=== PATIENT | female | born 1960 | race Caucasian/White ===

== ENCOUNTER → 2018-08-01 09:57 | Outpatient (CLI) | payer OTHER, MEDICAID, SELFPAY ==
--- NOTE | 2018-08-01 | DI.MG.S_ITS ---
BILATERAL DIGITAL SCREENING MAMMOGRAM 3D/2D WITH CAD: 08/01/2018 CLINICAL: Routine screening. Family history of breast cancer. Comparison is made to exams dated: 04/04/2017 mammogram, 12/30/2015 mammogram, and 10/31/2014 mammogram - [facility]. The tissue of both breasts is extremely dense, which lowers the sensitivity of mammography. Current study was also evaluated with a Computer Aided Detection (CAD) system. There are benign calcifications in both breasts. There also is a benign biopsy clip in the right breast. No significant masses, calcifications, or other findings are seen in either breast. There has been no significant interval change. IMPRESSION: There is no mammographic evidence of malignancy. A 1 year screening mammogram is recommended. This exam was interpreted at Station ID: [id number]. NOTE: For mammograms, a report in lay terms will be sent to the patient. Approximately 15% of breast malignancies will not be visualized mammographically. In the management of a palpable breast mass, a negative mammogram must not discourage biopsy of a clinically suspicious lesion. Electronically Signed By: Ortega stanford/kenia:08/01/2018 11:31:01 letter sent: Normal Exam ACR BI-RADS Category 2: Benign Finding(s) 3342F
== END ==
PROVIDERS: Visit Provider Nurse Practitioner
DX: Z12.31 Encounter for screening mammogram for malignant neoplasm of breast (principal); Z80.3 Family history of malignant neoplasm of breast
CPT/HCPCS: 77063; 77067

== ENCOUNTER → 2018-09-28 15:06 | Outpatient (CLI) | payer OTHER, MEDICAID, SELFPAY | PROVIDERS: Visit Provider Physician Assistant | DX: L02.91 Cutaneous abscess, unspecified (principal) | CPT/HCPCS: 87070; 87075; 87077; 87147; 87186; 87205 ==

== ENCOUNTER → 2019-02-21 07:06 | Outpatient (CLI) | payer OTHER, MEDICAID, SELFPAY ==
[2019-02-21 08:06] LABS: Add Manual Diff / Slide Review NO; Basophils Absolute Auto 100 /uL (0-100); Basophils Percent Auto 1.1 % (0-2); Eosinophils Absolute Auto 200 /uL (0-450); Eosinophils Percent Auto 2.9 % (2-4); Hematocrit 44.6 % (36-46); Hemoglobin 15.2 g/dL (12.0-16.0); Lymphocytes Absolute Auto 2000 /uL (1100-4500); Lymphocytes Percent Auto 33.6 % (25-40); Mean Corpuscular HGB Conc 34.1 % (30-36); Mean Corpuscular Hemoglobin 30.7 PG (26-34); Mean Corpuscular Volume 89.8 fL (80-100); Monocytes Absolute Auto 500 /uL (0-900); Monocytes Percent Auto 9.2 % (3-14); Neutrophils Absolute Auto 3200 /uL (1500-7000); Neutrophils Percent Auto 53.2 % (50-75); Platelet Count 299 X10^3/uL (150-400); Red Blood Cell Count 4.97 X10^6/uL (4.0-5.2); Red Cell Distribution Width 12.8 % (11.6-14.8)
[2019-02-21 08:15] LABS: Alanine Aminotransferase 26 IU/L (9-52); Albumin 4.4 g/dL (3.5-5.0); Albumin Globulin Ratio 1.4 (1.0-2.8); Alkaline Phosphatase 72 U/L (38-126); Aspartate Aminotransferase 31 IU/L (14-36); BUN Creatinine Ratio 26.7 (6-22); Bilirubin Total 0.5 mg/dL (0.2-1.3); Blood Urea Nitrogen 16 mg/dL (7-17); Calcium 9.1 mg/dL (8.4-10.2); Carbon Dioxide 30 mmol/L (22-32); Chloride 102 mmol/L (98-107); Cholesterol 196 mg/dL (140-199); Estimated Glomerular Filt Rate > 60.0 mL/min (>60); Globulin 3.2 g/dL (1.7-4.1); Glucose 91 mg/dL (70-100); HDL Cholesterol 68 mg/dL (40-60); HEMOLYSIS < 15 (0-50); LDL Cholesterol Calculated 113 mg/dL (<100); Potassium 3.7 mmol/L (3.4-5.1); Sodium 140 mmol/L (137-145); Total Protein 7.6 g/dL (6.3-8.2); Triglycerides 77 mg/dL (35-150)
[2019-02-21 08:16] LABS: C-Reactive Protein Quant < 0.5 mg/dL (<1.0)
[2019-02-21 08:36] LABS: Erythrocyte Sedimentation Rate 16 MM/HR (0-20)
[2019-02-21 08:43] LABS: TSH w/ Reflex to FT4 4.22 uIU/mL (0.47-4.68)
[2019-02-23 14:53] LABS: Fecal Immunochemical Test NOT DETECTED (NOT DETECTED)
[2019-02-23 18:13] LABS: 18 kD IgG Band Nonreactive; 23 kD IgG Band Nonreactive; 28 kD IgG Band Nonreactive; 30 kD IgG Band Nonreactive; 39 kD IgG Band Nonreactive; 41 kD IgG Bands Nonreactive; 45 kD IgG Band Nonreactive; 58 kD IgG Band Nonreactive; 66 kD IgG Band Reactive; 93 kD IgG Bands Nonreactive
== END ==
PROVIDERS: PCP Internal Medicine; Visit Provider Internal Medicine
DX: R53.83 Other fatigue (principal); E04.1 Nontoxic single thyroid nodule; Z13.1 Encounter for screening for diabetes mellitus; Z13.6 Encounter for screening for cardiovascular disorders; Z12.11 Encounter for screening for malignant neoplasm of colon
CPT/HCPCS: 36415; 80053; 80061; 82274; 84443; 85025; 85651; 86140; 86618

== ENCOUNTER → 2019-03-10 16:10 | Outpatient (CLI) | payer OTHER, MEDICAID, SELFPAY | PROVIDERS: PCP Internal Medicine; Visit Provider Physician Assistant | DX: R30.0 Dysuria (principal) | CPT/HCPCS: 87077; 87086; 87186 ==

== ENCOUNTER → 2019-08-29 10:20 | Outpatient (CLI) | payer OTHER, MEDICAID, SELFPAY ==
[2019-08-29 11:31] LABS: Appearance Urine UA CLEAR; Bilirubin Urine UA NEGATIVE (NEGATIVE); Color Urine UA YELLOW; Glucose Urine UA NEGATIVE (Negative); Ketones Urine UA NEGATIVE (NEGATIVE); Leukocyte Esterase Urine UA NEGATIVE (NEGATIVE); Nitrite Urine UA NEGATIVE (Negative); Occult Blood Urine UA 2+ (Negative); Protein Urine UA NEGATIVE (Negative); Specific Gravity Urine UA <=1.005 (1.000-1.035); Urobilinogen Urine UA 0.2 E.U./dL (0.2)
[2019-08-29 11:57] LABS: pH Urine UA 6.5 (4.5-8.0)
[2019-08-29 12:02] LABS: Bacteria Urine Occasional (0-1); RBC Urine 1-5/HPF (0-5/HPF); Squamous Epithelial Cell Urine 0-1 /HPF (0-5/HPF); WBC Urine 0-1/HPF (0-5/HPF)
[2019-08-29 12:03] LABS: Culture Indicated Urine Cult Not Indicated
== END ==
PROVIDERS: Family Provider Internal Medicine; PCP Internal Medicine; Visit Provider Student in an Organized Health Care Education/Training Program
DX: R30.0 Dysuria (principal)
CPT/HCPCS: 81001

== ENCOUNTER → 2019-08-30 09:51 | Outpatient (CLI) | payer OTHER, MEDICAID, SELFPAY ==
[2019-08-30 12:49] LABS: BUN Creatinine Ratio 22.9 (6-22); Blood Urea Nitrogen 16 mg/dL (7-17); Calcium 9.7 mg/dL (8.4-10.2); Carbon Dioxide 31 mmol/L (22-32); Chloride 102 mmol/L (98-107); Estimated Glomerular Filt Rate > 60.0 mL/min (>60); Glucose 86 mg/dL (70-100); HEMOLYSIS < 15 (0-50); Potassium 4.5 mmol/L (3.4-5.1); Sodium 142 mmol/L (137-145)
== END ==
PROVIDERS: PCP Internal Medicine; Visit Provider Internal Medicine
DX: R31.9 Hematuria, unspecified (principal)
CPT/HCPCS: 36415; 80048

== ENCOUNTER → 2019-09-03 13:59 | Outpatient (CLI) | payer OTHER, MEDICAID, SELFPAY ==
--- NOTE | 2019-09-03 14:02 | DI.CT.S_ITS ---
PROCEDURE: CT ABDOMEN PELVIS WO/W CON INDICATIONS: Hematuria TECHNIQUE: Optional 5 mm thick noncontrast images acquired from the diaphragm to the symphysis pubis. After the administration of intravenous contrast, 5 mm thick images acquired from the diaphragm to the symphysis pubis after a 10-minute delay. 2 mm thick coronal and sagittal reformats were then performed of the kidneys and ureters. For radiation dose reduction, the following was used: automated exposure control, adjustment of mA and/or kV according to patient size. COMPARISON: None. FINDINGS: Image quality: Excellent. Lung bases: Lung bases are clear. Heart size is normal. Urinary system: Both kidneys are normal in size, without hydronephrosis or nephrolithiasis on pre-contrast images. No perinephric fat stranding. There is normal bilateral renal enhancement. Renal calyces appear normal in morphology when filled with contrast. Opacified portions of both ureters demonstrate normal caliber. Bladder wall thickness is normal. No calcified bladder stones. Other solid organs: Liver is normal in size and enhancement. Gallbladder appears normal. Biliary system is non dilated. Pancreas enhances normally. Spleen is normal in size and enhancement. No adrenal nodules. Peritoneum and bowel: Bowel loops demonstrate normal wall thickness and caliber. No free fluid or air. Nodes and vessels: No retroperitoneal or mesenteric adenopathy by size criteria. Aorta and inferior vena cava are normal in size. Abdominal wall: No ventral hernias. Pelvis: No pathologic free pelvic fluid. No inguinal hernias or adenopathy. Bones: No suspicious bony lesions. No vertebral body compression fractures. IMPRESSION: No urinary tract stone is seen. Renal cortical enhancement is normal. Over the urothelium through the kidneys, ureters and bladder no mass lesion is found. Source of reported persistent hematuria is not identified. Dictated by: Dawit Lopez M.D. on 09/03/2019 at 15:05 Approved by: Dawit Lopez M.D. on 09/03/2019 at 15:06
== END ==
PROVIDERS: PCP Internal Medicine; Visit Provider Internal Medicine
DX: R31.9 Hematuria, unspecified (principal)
CPT/HCPCS: 74178; Q9967

== ENCOUNTER 2019-10-08 14:20 | Emergency (ER) | payer OTHER, MEDICAID, SELFPAY ==
[2019-10-08 14:27] VITALS: BP 161/84; PULSE 103; RESP 16; TEMP 37; O2SAT 98
--- NOTE | 2019-10-08 20:31 | ED_ITS ---
HPI - Skin/Abscess/Foreign Bdy <USMAN Dasilva-BC - Last Filed: 10/08/19 20:35> General Chief complaint: Skin/Abscess/Foreign Body Stated complaint: sore, swelling,painful on face Time Seen by Provider: 10/08/19 16:12 Source: patient Mode of arrival: Ambulatory Limitations: no limitations History of Present Illness HPI narrative: The patient is a 5-year-old female current smoker with history of abscess who presents with a chief complaint of continued infection on her face. She has seen and evaluated at the walk-in clinic on 10/05 and started on Bactrim for a lesion of her lower lip. She states that she started noticing this on Monday prior, she states she tried to squeeze it got worse. She states she has had 6 doses of the Bactrim. She denies any fevers nausea vomiting or diarrhea. She complains of lack of improvement. Related Data Home Medications Medication Instructions Recorded Confirmed estradiol VAGINAL 10/08/19 Previous Rx's Medication Instructions Recorded sulfamethoxazole 800 1 tab PO BID 10 Days #20 tab 10/05/19 mg-trimethoprim 160 mg tablet mupirocin 2 % topical ointment 1 applic TOP TID #30 gram 10/07/19 cephalexin 500 mg PO QID #40 cap 10/08/19 Allergies Allergy/AdvReac Type Severity Reaction Status Date / Time latex Allergy Intermediate RASHES AND Verified 10/05/19 17:17 BLISTERS Review of Systems <USMAN Dasilva-BC - Last Filed: 10/08/19 20:35> Review of Systems Narrative: GENERAL: Denies chills, fatigue, malaise, fever, sweats. HEENT: Denies sinus pain, ear pain, sore throat, difficulty swallowing, dizziness. RESPIRATORY: Denies dyspnea, cough, wheezing, hemoptysis, sputum. CARDIOVASCULAR: Denies chest pain, palpitations, orthopnea, edema, GASTROINTESTINAL: Denies nausea, vomiting, abdominal pain, diarrhea, constipation, melena. : Denies dysuria, frequency, incontinence, hematuria, urinary retention. MUSCULOSKELETAL: denies weakness, joint pain, or bony pain SKIN: See HPI NEUROLOGIC: Denies weakness, headache, numbness, change in speech, confusion, seizures, incoordination. PSYCHIATRIC: No concerning psychosocial issues. 12 point review of systems is negative except for those stated above Patient History <ALINE Dasilva - Last Filed: 10/08/19 20:35> Medical History Adenomyosis (Resolved) Anesthesia (Resolved) Cervical spine disease (Chronic) Chicken pox (Resolved 1965) Chronic back pain (Chronic 1973) Degeneration of intervertebral disc, site unspecified (Chronic 08/26/11) Eczema (Chronic) Fibroids (Resolved 1999) Genital warts (Resolved 1980) History of heavy periods (Resolved 2001) Lumbar spine pain (Chronic) Ovarian cyst (Resolved 1999) Painful menstrual periods (Resolved 2001) Plantar warts (Resolved 1968) Thyroid nodule (Resolved 2004) Tinea pedis (Resolved) Surgical History History of bilateral salpingo-oophorectomy (BSO) History of right oophorectomy (Resolved 1999) History of surgery of liver (Resolved 1983) History of thyroidectomy (Resolved 2004) History of umbilical hernia repair (Resolved 1961) Status post tubal ligation (Resolved 2001) Family History Brother Age: 63 Mental health problem Father Heart disease Cancer Mother Osteoporosis Essential hypertension Grandfather No problems noted. Grandmother No problems noted. Grandfather No problems noted. Grandmother Stroke Sister No problems noted. Family/Other Breast cancer Social History Smoking Status: Current some day smoker Smoking Status: Current some day smoker tobacco type: cigarettes alcohol intake frequency: 0-2 drinks per day Alcohol type: wine Exam <ALINE Dasilva - Last Filed: 10/08/19 20:35> Narrative Exam Narrative: GENERAL: This is a well-nourished, well-developed patient, in no acute distress HEAD: Atraumatic. Normocephalic. No temporal or scalp tenderness. EYES: Pupils equal round and reactive. Extraocular motions intact. No scleral icterus. No injection or drainage. ENT: Nose without bleeding, purulent drainage or septal hematoma. Throat without erythema, tonsillar hypertrophy or exudate. Uvula midline. Airway patent. See skin exam NECK: Trachea midline. No JVD or lymphadenopathy. Supple, nontender, no meningeal signs. CARDIOVASCULAR: Regular rate and rhythm without murmurs, gallops, or rubs. RESPIRATORY: Clear to auscultation. Breath sounds equal bilaterally. No wheezes, rales, or rhonchi. No cough. No increased respiratory effort. No accessory muscle use. GASTROINTESTINAL: Abdomen soft, non-tender, nondistended. No hepato- splenomegaly, or palpable masses. No guarding. EXTREMITIES: No clubbing, cyanosis, or edema. No joint tenderness, effusion, or edema noted. BACK: Nontender without deformity or crepitance. No flank tenderness. NEURO: AOx3. SKIN: Draining wound noted midline distal to lower lip, 0.5 cm of surrounding erythema, tender to palpation, not warmth to palpation. It's purulence drainage noted. No palpable fluctuance. Culture obtained. Initial Vital Signs Initial Vital Signs: Vital Signs Temperature 98.6 F 10/08/19 14:27 Pulse Rate 103 H 10/08/19 14:27 Respiratory Rate 16 10/08/19 14:27 Blood Pressure 161/84 H 10/08/19 14:27 Pulse Oximetry 98 10/08/19 14:27 <Lisa Araiza MD - Last Filed: 10/15/19 08:08> Initial Vital Signs Initial Vital Signs: Vital Signs Temperature 98.6 F 10/08/19 14:27 Pulse Rate 103 H 10/08/19 14:27 Respiratory Rate 16 10/08/19 14:27 Blood Pressure 161/84 H 10/08/19 14:27 Pulse Oximetry 98 10/08/19 14:27 Course <ALINE Dasilva - Last Filed: 10/08/19 20:35> Orders Ordered: ED Orders 10/08/19 16:54 Wound Culture and Gram Stain Stat Vital Signs Vital signs: Vital Signs - 8 hr 10/08/19 14:27 Temperature 98.6 F Pulse Rate 103 H Respiratory Rate 16 Blood Pressure 161/84 H Pulse Oximetry 98 <Lisa Araiza MD - Last Filed: 10/15/19 08:08> Orders Ordered: ED Orders 10/08/19 16:54 Wound Culture and Gram Stain Stat Vital Signs Vital signs: Vital Signs - 8 hr 10/08/19 14:27 Temperature 98.6 F Pulse Rate 103 H Respiratory Rate 16 Blood Pressure 161/84 H Pulse Oximetry 98 MDM - Skin/Abscess/Foreign Bdy <Mikayla GarciasUSMAN- - Last Filed: 10/08/19 20:35> [facility] Narrative Medical decision making narrative: The patient is a 59-year-old female who presents with a chief complaint of continued abscess. She had a needle I and D at the walk-in clinic on the . She has been taking Bactrim ever since. I will add Keflex to Bactrim in order to further coverage including MSSA. Wound cultures obtained at this point time. The abscess is draining very well by itself, so I do not believe that she needs further I and D. Encourage continued warm compresses several times a day. Discussed at length the importance of follow-up with primary care provider. She has no signs of systemic infection, is afebrile, and states understanding of these return precautions. Patient has no questions or concerns upon discharge and states understanding of return precautions as well as follow-up care. Discharge Plan Departure Patient Disposition: Home Clinical Impression: Abscess Discharge Date/Time: 10/08/19 16:55 Instructions: DI for Skin Abscess Activity Restrictions/Additional Instructions: I sent a prescription of a 2nd antibiotic to [facility] Please continue your Bactrim The wound culture were result in 2-3 days. We will call you if we need to change your antibiotics Please follow-up with primary care provider the next few days Please come back to the emergency department for any acute concerns such as fever, inability keep down fluids etc. Prescriptions: New cephalexin 500 mg capsule 500 mg PO QID Qty: 40 RF: 0 No Action sulfamethoxazole-trimethoprim 800-160 mg tablet 1 tab PO BID 10 Days Qty: 20 RF: 0 mupirocin 2 % ointment 1 applic TOP TID Qty: 30 RF: 0 estradiol 0.01 % (0.1 mg/gram) cream VAGINAL RF: 0 Referrals: Ben Turk MD [Primary Care Provider] -
== END 2019-10-08 16:55 | disposition home or self-care (01) ==
PROVIDERS: Emergency Provider Nurse Practitioner Family; PCP Internal Medicine
DX: L02.01 Cutaneous abscess of face (principal)
CPT/HCPCS: 87070; 87075; 87077; 87147; 87186; 87205; 99281; 99283

== ENCOUNTER → 2020-12-25 11:41 | Outpatient (CLI) | payer OTHER, MEDICAID, SELFPAY ==
[2020-12-25] MEDS: COVID-19 VACC, Ad26(JANSSEN)/PF 0.5 ML IM (11:45)
== END ==
PROVIDERS: PCP Internal Medicine; Visit Provider Internal Medicine
DX: Z23 Encounter for immunization (principal)
CPT/HCPCS: 0031A; 91303

== ENCOUNTER → 2021-06-25 14:17 | Outpatient (CLI) | payer OTHER, MEDICAID, SELFPAY ==
--- NOTE | 2021-06-25 | DI.MG.S_ITS ---
BILATERAL DIGITAL SCREENING MAMMOGRAM 3D/2D WITH CAD: 06/25/2021 CLINICAL: Routine screening. Family history of breast cancer. Comparison is made to exams dated: 08/01/2018 mammogram, 04/04/2017 mammogram, and 12/30/2015 mammogram - [facility]. The tissue of both breasts is extremely dense, which lowers the sensitivity of mammography. Current study was also evaluated with a Computer Aided Detection (CAD) system. There are benign calcifications in both breasts. There also is a biopsy clip in the right breast. No significant masses, calcifications, or other findings are seen in either breast. There has been no significant interval change. IMPRESSION: BENIGN There is no mammographic evidence of malignancy. A 1 year screening mammogram is recommended. This exam was interpreted at Station ID: [id number]. NOTE: For mammograms, a report in lay terms will be sent to the patient. Approximately 15% of breast malignancies will not be visualized mammographically. In the management of a palpable breast mass, a negative mammogram must not discourage biopsy of a clinically suspicious lesion. Electronically Signed By: Júnior young/kenia:06/25/2021 15:40:35 letter sent: Normal Exam ACR BI-RADS Category 2: Benign Finding(s) 3342F
== END ==
PROVIDERS: PCP Internal Medicine; Referring Provider Internal Medicine; Visit Provider Internal Medicine
DX: Z12.31 Encounter for screening mammogram for malignant neoplasm of breast (principal); Z80.3 Family history of malignant neoplasm of breast
CPT/HCPCS: 77063; 77067

== ENCOUNTER → 2023-03-07 11:29 | Outpatient (CLI) | payer OTHER, MEDICAID, SELFPAY ==
--- NOTE | 2023-03-07 | DI.MG.S_ITS ---
BILATERAL DIGITAL SCREENING MAMMOGRAM 3D/2D WITH CAD: 03/07/2023 CLINICAL: Routine screening. Family history of breast cancer. Comparison is made to exams dated: 06/25/2021 mammogram, 08/01/2018 mammogram, 04/04/2017 mammogram, and 12/30/2015 mammogram - . Both breasts are heterogeneously dense, which may obscure small masses (category c / 51-75% glandular tissue). Current study was also evaluated with a Computer Aided Detection (CAD) system. There is a focal asymmetry in the right breast at 6 o'clock middle depth. This is more prominent. No other significant masses, calcifications, or other findings are seen in either breast. Right breast biopsy clip. Diffuse calcifications in both breasts. IMPRESSION: INCOMPLETE: NEEDS ADDITIONAL IMAGING EVALUATION The focal asymmetry in the right breast is indeterminate. Additional views with possible ultrasound are recommended. Based on the Tyrer Cuzick model (a risk assessment model) the patient's lifetime risk is 12.9% and her 10 year risk is 5.9%. According to the ACR, ACS, and NCCN guidelines, an annual breast MRI exam along with mammogram is recommended if the patient's lifetime risk is 20% or greater. This exam was interpreted at Station ID: [id number]. NOTE: For mammograms, a report in lay terms will be sent to the patient. Approximately 15% of breast malignancies will not be visualized mammographically. In the management of a palpable breast mass, a negative mammogram must not discourage biopsy of a clinically suspicious lesion. Electronically Signed By: Darrel Lizama M.D. [facility] [place]03/07/2023 13:41:28 letter sent: Additional Imaging Needed ACR BI-RADS Category 0: Incomplete 3340F
== END ==
PROVIDERS: PCP Internal Medicine; Referring Provider Internal Medicine; Visit Provider Internal Medicine
DX: R92.8 Other abnormal and inconclusive findings on diagnostic imaging of breast (principal)
CPT/HCPCS: 77063; 77067

== ENCOUNTER → 2023-03-23 08:40 | Outpatient (CLI) | payer OTHER, MEDICAID, SELFPAY ==
--- NOTE | 2023-03-23 08:41 | DI.US.S_ITS ---
LIMITED ULTRASOUND OF RIGHT BREAST: 03/23/2023 CLINICAL: Abnormal mammogram. Comparison is made to exams dated: 03/23/2023 mammogram, 03/07/2023 mammogram, 06/25/2021 mammogram, 08/01/2018 mammogram, and 04/04/2017 mammogram - [facility]. Color flow and real-time ultrasound of the right breast were performed. Carlisle scale images of the real-time examination were reviewed. There is a 0.7 cm x 0.5 cm x 0.8 cm cluster of oval micro cysts in the right breast at 12 o'clock anterior depth. This correlates with mammography findings. There also is a 0.7 cm x 0.5 cm x 0.6 cm cluster of micro cysts in the right breast at 6 o'clock middle depth 5 cm from the nipple. This correlates with mammography findings. Numerous other simple and complicated cysts are seen on ultrasound around these regions, benign. IMPRESSION: PROBABLY BENIGN The 0.7 cm x 0.5 cm x 0.8 cm cluster of oval micro cysts in the right breast at 12 o'clock anterior depth is probably benign. Follow-up mammogram and ultrasound in 6 months is recommended. This likely corresponds to the ML view asymmetry. The 0.7 cm x 0.5 cm x 0.6 cm cluster of micro cysts in the right breast at 6 o'clock middle depth is probably benign. Follow-up mammogram and ultrasound in 6 months is recommended. This likely corresponds to the focal asymmetry from the original screening mammography callback. Numerous other simple and complicated cysts are seen on ultrasound around these regions, benign. This exam was interpreted at Station ID: [id number]. Electronically Signed By: Jose Sellers M.D. lc/:03/23/2023 10:37:45 letter sent: Followup Recommended Ultrasound BI-RADS: 3 Probably benign
--- NOTE | 2023-03-23 08:41 | DI.MG.S_ITS ---
UNILATERAL RIGHT DIGITAL DIAGNOSTIC MAMMOGRAM 3D/2D WITH ADDITIONAL VIEWS: 03/23/2023 CLINICAL: Additional evaluation requested from prior study. Comparison is made to exams dated: 03/07/2023 mammogram, 06/25/2021 mammogram, and 08/01/2018 mammogram - [facility]. The right breast is heterogeneously dense, which may obscure small masses (category c / 51-75% glandular tissue). There is a 0.6 cm oval mass with a circumscribed margin in the right breast at 6 o'clock middle depth. There also is an asymmetry in the right breast anterior depth superior region seen on the ML view only. No other significant masses or calcifications are seen in the breast. IMPRESSION: INCOMPLETE: NEEDS ADDITIONAL IMAGING EVALUATION The 0.6 cm oval mass in the right breast at 6 o'clock middle depth is indeterminate. An ultrasound is recommended. The asymmetry in the right breast anterior depth superior region seen on the ML view is indeterminate. An ultrasound is recommended. Based on the Tyrer Cuzick model (a risk assessment model) the patient's lifetime risk is 12.9% and her 10 year risk is 5.9%. According to the ACR, ACS, and NCCN guidelines, an annual breast MRI exam along with mammogram is recommended if the patient's lifetime risk is 20% or greater. This exam was interpreted at Station ID: [id number]. NOTE: For mammograms, a report in lay terms will be sent to the patient. Approximately 15% of breast malignancies will not be visualized mammographically. In the management of a palpable breast mass, a negative mammogram must not discourage biopsy of a clinically suspicious lesion. Electronically Signed By: Jose Sellers M.D. lc/:03/23/2023 10:34:14 ACR BI-RADS Category 0: Incomplete 3340F
== END ==
PROVIDERS: PCP Internal Medicine; Referring Provider Internal Medicine; Visit Provider Internal Medicine
DX: R92.8 Other abnormal and inconclusive findings on diagnostic imaging of breast (principal); N60.01 Solitary cyst of right breast
CPT/HCPCS: 76642; 77065; G0279

== ENCOUNTER → 2023-03-31 07:04 | Outpatient (CLI) | payer OTHER, MEDICAID, SELFPAY ==
[2023-03-31 08:23] LABS: Alanine Aminotransferase 32 IU/L (<35); Albumin 4.4 g/dL (3.5-5.0); Albumin Globulin Ratio 1.6 (1.0-2.8); Alkaline Phosphatase 78 U/L (38-126); Aspartate Aminotransferase 33 IU/L (14-36); BUN Creatinine Ratio 18.1 (6-22); Bilirubin Total 0.7 mg/dL (0.2-1.3); Blood Urea Nitrogen 13 mg/dL (7-17); Calcium 9.4 mg/dL (8.4-10.2); Carbon Dioxide 30 mmol/L (22-32); Chloride 99 mmol/L (98-107); Cholesterol 205 mg/dL (140-199); Estimated Glomerular Filt Rate > 60 mL/min (>60); Globulin 2.8 g/dL (1.7-4.1); Glucose 100 mg/dL (80-110); HDL Cholesterol 72 mg/dL (40-60); HEMOLYSIS < 15 (0-50); LDL Cholesterol Calculated 124 mg/dL (<100); Potassium 3.9 mmol/L (3.4-5.1); Sodium 137 mmol/L (137-145); Total Protein 7.2 g/dL (6.3-8.2); Triglycerides 43 mg/dL (35-150)
[2023-03-31 08:45] LABS: TSH w/ Reflex to FT4 3.55 uIU/mL (0.47-4.68)
== END ==
PROVIDERS: PCP Internal Medicine; Referring Provider Internal Medicine; Visit Provider Internal Medicine
DX: I10 Essential (primary) hypertension (principal)
CPT/HCPCS: 36415; 80053; 80061; 84443

== ENCOUNTER 2023-04-24 18:45 | Emergency (ER) | payer OTHER, MEDICAID, SELFPAY ==
[2023-04-24 18:53] VITALS: BP 144/91; PULSE 87; RESP 18; TEMP 37.2; O2SAT 98; BMI 24.9
--- NOTE | 2023-04-24 20:40 | ED.WOUNDLAC ---
HPI - Wound/Laceration General Chief Complaint: Wound/Laceration Stated Complaint: cyst removed from back/bleeding profusely Time Seen by Provider: 04/24/23 20:13 Source: patient Mode of arrival: Ambulatory History of Present Illness HPI narrative: Patient is a 62-year-old female who earlier today had a sebaceous cyst removed from her back. She states that after the procedure she did do quite a bit of stuff and was moving things around at home and bending over. She stated that she started to notice that something was running down her back and a friend looked at it and noticed that she was bleeding. Related Data Previous Rx's Medication Instructions Recorded bupropion HCl 150 mg 24 hr tablet, 150 mg PO QAM #90 tabs 02/21/23 extended release lisinopril 20 mg tablet 20 mg PO DAILY #90 tabs 02/21/23 Allergies Allergy/AdvReac Type Severity Reaction Status Date / Time latex Allergy Intermediate RASHES AND Verified 04/24/23 18:59 BLISTERS Review of Systems Musculoskeletal Musculoskeletal: Reports system reviewed and no additional complaints, except as documented Integumentary/Breasts Skin/Breast: Reports system reviewed and no additional complaints, except as documented Hematologic/Lymphatic On Anticoagulants: No Patient History Medical History Abscess Adenomyosis Anesthesia Cervical spine disease Chicken pox (1965) Chronic back pain (1973) Degeneration of intervertebral disc, site unspecified (08/26/11) Eczema Essential hypertension Fibroids (1999) Genital warts (1980) History of heavy periods (2001) Lumbar spine pain Ovarian cyst (1999) Painful menstrual periods (2001) Plantar warts (1968) Thyroid nodule (2004) Tinea pedis Surgical History History of bilateral salpingo-oophorectomy (BSO) History of right oophorectomy (1999) History of surgery of liver (1983) History of thyroidectomy (2004) History of umbilical hernia repair (1961) Status post tubal ligation (2001) Family History Brother Age: 66 Mental health problem Father Heart disease Cancer Mother Osteoporosis Essential hypertension Grandfather No problems noted. Grandmother No problems noted. Grandfather No problems noted. Grandmother Stroke Sister No problems noted. Family/Other Breast cancer Social History Smoking Status: Current some day smoker Smoking Status: Current some day smoker tobacco type: cigarettes alcohol intake frequency: 0-2 drinks per day Alcohol type: wine Substance Use Type: marijuana Exam Initial Vital Signs Initial Vital Signs: Vital Signs Temperature 98.9 F 04/24/23 18:53 Pulse Rate 87 04/24/23 18:53 Respiratory Rate 18 04/24/23 18:53 Blood Pressure 144/91 H 04/24/23 18:53 Pulse Oximetry 98 04/24/23 18:53 Oxygen Delivery Method Room Air 04/24/23 18:53 Skin Other: The surgical incision in her upper middle back appears well. The stitches are in place. There is no signs of any dehiscence. There is no active bleeding. No surrounding erythema. Course Vital Signs Vital signs: Vital Signs - 8 hr 04/24/23 18:53 04/24/23 20:51 Temperature 98.9 F 97.7 F Pulse Rate 87 78 Respiratory Rate 18 18 Blood Pressure 144/91 H Pulse Oximetry 98 98 Oxygen Delivery Method Room Air Room Air MDM - Wound/Laceration MDM Narrative Medical decision making narrative: The patient's surgical incision looks very well. No wound dehiscence. Was observed here in the emergency department for a period of time without any continued bleeding. No further workup required here in the ER. Patient was given return precautions and follow-up instructions. She expressed understanding and agreement. Discharge Plan Departure Patient Disposition: Home Clinical Impression: Postoperative haemorrhage Activity Restrictions/Additional Instructions: Continue to follow all of the postprocedure instructions given to you by the surgeon. I do recommend that you contact your primary doctor for follow-up. Return to the emergency department for new or worsening symptoms. Prescriptions: No Action bupropion HCl 150 mg tablet extended release 24 hr 150 mg PO QAM Qty: 90 3RF lisinopril 20 mg tablet 20 mg PO DAILY Qty: 90 3RF Referrals: Ben Turk MD [Primary Care Provider] - Stand Alone Forms: Patient Portal/API
[2023-04-24 20:51] VITALS: PULSE 78; RESP 18; TEMP 36.5; O2SAT 98
== END 2023-04-24 21:00 | disposition home or self-care (01) ==
PROVIDERS: Emergency Provider Emergency Medicine; PCP Internal Medicine
DX: L76.21 Postprocedural hemorrhage of skin and subcutaneous tissue following a dermatologic procedure (principal)
CPT/HCPCS: 99281; 99282

== ENCOUNTER → 2023-07-06 08:49 | Outpatient (CLI) | payer OTHER, MEDICAID, SELFPAY ==
[2023-07-07 17:26] LABS: Fecal Immunochemical Test Negative (Negative)
== END ==
PROVIDERS: PCP Internal Medicine; Referring Provider Internal Medicine; Visit Provider Internal Medicine
DX: Z12.11 Encounter for screening for malignant neoplasm of colon (principal)
CPT/HCPCS: 82274

== ENCOUNTER → 2024-01-05 08:38 | Outpatient (CLI) | payer OTHER, MEDICAID, SELFPAY ==
--- NOTE | 2024-01-05 08:39 | DI.US.S_ITS ---
LIMITED ULTRASOUND OF RIGHT BREAST: 01/05/2024 CLINICAL: Patient returns today to evaluate a focal asymmetry in the right breast. Comparison is made to exams dated: 01/05/2024 mammogram, 03/23/2023 ultrasound, 03/23/2023 mammogram, 03/07/2023 mammogram, 06/25/2021 mammogram, and 08/01/2018 mammogram - [facility]. Color flow and real-time ultrasound of the right breast 6 o'clock and 12 o'clock regions were performed on the areas of interest. Carlisle scale images of the real-time examination were reviewed. There is a stable benign cluster of cysts in the right breast at 6 o'clock posterior depth. This cluster of cysts displays a hyperechoic rim. Of note, there are multiple similar appearing regions throughout the imaged breast tissue. The benign cluster of cysts in the right breast at 12 o'clock anterior depth is no longer seen. IMPRESSION: BENIGN There is no sonographic evidence of malignancy. The stable cluster of cysts in the right breast at 6 o'clock posterior depth most likely represents normal fibrocystic breast tissue, has a similar appearance to the surrounding fibroglandular tissue, and is benign. Return to annual mammogram screening schedule is recommended. This exam was interpreted at Station ID: [id number]. Electronically Signed By: Meenakshi garcia/:01/05/2024 09:47:39 letter sent: Normal Exam Ultrasound BI-RADS: 2 Benign
--- NOTE | 2024-01-05 08:39 | DI.MG.S_ITS ---
BILATERAL DIGITAL DIAGNOSTIC MAMMOGRAM 3D/2D: 01/05/2024 CLINICAL: Short term follow up of the right breast, due for bilateral imaging. Comparison is made to exams dated: 03/23/2023 ultrasound, 03/23/2023 mammogram, and 03/07/2023 mammogram - [facility]. Both breasts are heterogeneously dense, which may obscure small masses (category c / 51-75% glandular tissue). There is a stable round mass in the right breast at 6 o'clock posterior depth. The asymmetry in the right breast anterior depth superior region seen on the previous mediolateral oblique view only is no longer seen. No other significant masses, calcifications, or other findings are seen in either breast. IMPRESSION: INCOMPLETE: NEEDS ADDITIONAL IMAGING EVALUATION The stable round mass in the right breast at 6 o'clock posterior depth likely represents a cyst and is indeterminate. A targeted ultrasound of the right breast is recommended and will be performed immediately following this exam. Based on the Tyrer Cuzick model (a risk assessment model) the patient's lifetime risk is 12.4% and her 10 year risk is 5.9%. According to the ACR, ACS, and NCCN guidelines, an annual breast MRI exam along with mammogram is recommended if the patient's lifetime risk is 20% or greater. This exam was interpreted at Station ID: [id number]. NOTE: For mammograms, a report in lay terms will be sent to the patient. Approximately 15% of breast malignancies will not be visualized mammographically. In the management of a palpable breast mass, a negative mammogram must not discourage biopsy of a clinically suspicious lesion. Electronically Signed By: Meenakshi Klein M.D. lk/:01/05/2024 09:18:20 ACR BI-RADS Category 0: Incomplete [id number]
== END ==
PROVIDERS: PCP Internal Medicine; Referring Provider Internal Medicine; Visit Provider Internal Medicine
DX: R92.8 Other abnormal and inconclusive findings on diagnostic imaging of breast (principal); N60.01 Solitary cyst of right breast; R92.333 Mammographic heterogeneous density, bilateral breasts
CPT/HCPCS: 76642; 77066; G0279

== ENCOUNTER → 2024-04-01 11:40 | Outpatient (CLI) | payer OTHER, MEDICAID, SELFPAY ==
[2024-04-01 14:26] LABS: Alanine Aminotransferase 27 IU/L (<35); Albumin 4.3 g/dL (3.5-5.0); Albumin Globulin Ratio 1.6 (1.0-2.8); Alkaline Phosphatase 70 U/L (38-126); Aspartate Aminotransferase 29 IU/L (14-36); BUN Creatinine Ratio 22.9 (6-22); Bilirubin Total 0.4 mg/dL (0.2-1.3); Blood Urea Nitrogen 16 mg/dL (7-17); Calcium 9.1 mg/dL (8.4-10.2); Carbon Dioxide 28 mmol/L (22-32); Chloride 103 mmol/L (98-107); Estimated Glomerular Filt Rate > 60 mL/min (>60); Globulin 2.7 g/dL (1.7-4.1); Glucose 106 mg/dL (80-110); HEMOLYSIS < 15 (0-50); Potassium 4.3 mmol/L (3.4-5.1); Sodium 137 mmol/L (137-145)
[2024-04-02 11:36] LABS: Rubeola Measles IgG > 300.0 AU/mL (Immune >16.4)
[2024-04-03 12:44] LABS: Mumps Virus IgG Antibody >300.0 AU/mL (Immune >10.9)
== END ==
PROVIDERS: PCP Internal Medicine; Referring Provider Internal Medicine; Visit Provider Internal Medicine
DX: Z11.59 Encounter for screening for other viral diseases (principal); I10 Essential (primary) hypertension
CPT/HCPCS: 36415; 80053; 86735; 86762; 86765

== ENCOUNTER → 2024-10-30 11:21 | Outpatient (CLI) | payer MEDICARE, SELFPAY | PROVIDERS: PCP Internal Medicine; Visit Provider Physician Assistant | DX: N95.2 Postmenopausal atrophic vaginitis (principal); N89.8 Other specified noninflammatory disorders of vagina | CPT/HCPCS: 87070; 87075; 87205; 87252 ==

== ENCOUNTER → 2025-09-17 12:48 | Outpatient (CLI) | payer MEDICARE, SELFPAY ==
--- NOTE | 2025-09-17 12:49 | DI.MG.S_ITS ---
MM screening mammo BI: 09/17/2025. BI-RADS: 2 CLINICAL: 64-year old female for bilateral screening mammogram. Tyrer-Cuzick lifetime risk of 15.4%. No personal or first-degree family history of breast cancer. Current reported family history of breast cancer: paternal aunt. The patient had a prior right breast biopsy. PRIOR EXAMS 01/05/2024, 03/23/2023, 03/07/2023, 06/25/2021. MAMMOGRAPHY TECHNIQUE: 2D and 3D (tomosynthesis) digital mammographic views obtained, with additional images as needed for full coverage. Current study was also evaluated with a Computer Aided Detection (CAD) system. DENSITY C. The breasts are heterogeneously dense, which may obscure small masses. MAMMOGRAPHY FINDINGS Bilateral: Benign-appearing calcifications noted. There are no suspicious masses, calcifications, or other findings in the breast. No significant change from comparison. IMPRESSION: * No evidence of malignancy with benign findings. RECOMMENDATIONS Bilateral * Annual screening mammography. OVERALL ASSESSMENT CATEGORY BI-RADS-2: Benign. The [employer] recommends annual screening mammography beginning at age 40 for women with average risk of breast cancer. ELECTRONICALLY SIGNED: Demian Yoon M.D. on 09/19/2025 at 11:34:03 PM PT Interpreting Station ID: [id number]
== END ==
LOC: MAMMO 12:49
PROVIDERS: PCP Internal Medicine; Referring Provider Internal Medicine; Visit Provider Internal Medicine
DX: Z12.31 Encounter for screening mammogram for malignant neoplasm of breast (principal); Z80.3 Family history of malignant neoplasm of breast; R92.333 Mammographic heterogeneous density, bilateral breasts
CPT/HCPCS: 77063; 77067